=== PATIENT | female | born 1975 ===

== ENCOUNTER 2018-01-10 13:55 | Emergency (ER) | payer MEDICAID, OTHER ==
[2018-01-10 14:36] VITALS: RESP 20; O2SAT 98
--- NOTE | 2018-01-10 16:48 | ED PDOC ---
HPI: Influenza Time Seen by Provider: 01/10/18 15:46 Chief Complaint: ENT Problem History Per: Patient Additional complaint(s):: Pt. states since Wednesday night she's had cough, congestion. States last night she developed a fever (did not take temperature). Has been taking OTC meds without relief. Denies chest pain, SOB, hemoptysis, sick contacts, recent travel. Past Medical History Reviewed: Historical Data, Nursing Documentation, Vital Signs Vital Signs: Last Vital Signs Temp 97.8 F 01/10/18 14:30 Pulse 100 H 01/10/18 14:30 Resp 20 01/10/18 14:30 BP 127/80 01/10/18 14:30 Pulse Ox 98 01/10/18 14:30 - Family History Family History: States: No Known Family Hx - Immunization History Hx Tetanus Toxoid Vaccination: No Hx Influenza Vaccination: No Hx Pneumococcal Vaccination: No - Home Medications Home Medications: Ambulatory Orders Medication Instructions Recorded Oseltamivir [Tamiflu] 75 mg PO BID #9 cap 01/10/18 RX: Promethazine DM [Phenergan DM 5 - 10 ml PO Q8 PRN #120 ml 01/10/18 Syrup] - Allergies Allergies/Adverse Reactions: Allergies Allergy/AdvReac Type Severity Reaction Status Date / Time No Known Allergies Allergy Verified 01/10/18 14:30 Review of Systems ROS Statement: Except As Marked, All Systems Reviewed And Found Negative Constitutional: Positive for: Fever, Malaise ENT: Positive for: Nose Congestion Respiratory: Positive for: Cough Physical Exam - Physical Exam Appears: Positive for: Well, Non-toxic, No Acute Distress Skin: Positive for: Normal Color, Warm. Negative for: Rash Eye Exam: Positive for: EOMI, Normal appearance, PERRL ENT: Positive for: Normal ENT Inspection Cardiovascular/Chest: Positive for: Regular Rate, Rhythm Respiratory: Positive for: CNT, Normal Breath Sounds Gastrointestinal/Abdominal: Positive for: Soft. Negative for: Tenderness Neurologic/Psych: Positive for: Alert, Oriented (x3). Negative for: Aphasia, Facial Droop - ECG O2 Sat by Pulse Oximetry: 98 Disposition - Clinical Impression Clinical Impression: Influenza-like illness - Patient ED Disposition Is Patient to be Admitted: No - Disposition Referrals: [facility] [Outside] Disposition: Routine/Home Disposition Time: 16:50 Condition: STABLE Additional Instructions: BARBARA CHRISTIANSEN, thank you for letting us take care of you today. Your provider was Sonia Hernandez MD and you were treated for FEVER,HEADACHE. The emergency medical care you received today was directed at your acute symptoms. If you were prescribed any medication, please fill it and take as directed. It may take several days for your symptoms to resolve. Return to the Emergency Department if your symptoms worsen, do not improve, or if you have any other problems. Please contact your doctor or call one of the physicians/clinics you have been referred to that are listed on the Patient Visit Information form that is included in your discharge packet. Bring any paperwork you were given at discharge with you along with any medications you are taking to your follow up visit. Our treatment cannot replace ongoing medical care by a primary care provider outside of the emergency department. Thank you for allowing the [facility] team to be part of your care today. If you had an X-Ray or CT scan: A Radiologist will review the ED reading if any change in treatment is needed we will contact you. If you had a blood, urine, or wound culture: It will take several days for the results, if any change in treatment is needed we will contact you. If you had an STI test: It will take 48 hours for the results. Please call after 1 week if you have not heard back. Prescriptions: Oseltamivir [Tamiflu] 75 mg PO BID #9 cap RX: Promethazine DM [Phenergan DM Syrup] 5 - 10 ml PO Q8 PRN #120 ml PRN Reason: Cough Instructions: Viral Syndrome (DC) Forms: [employer] (Norwegian)
[2018-01-10 18:49] VITALS: BP 120/70; PULSE 70; TEMP 98
== END 2018-01-10 18:20 | disposition home or self-care (01) ==
LOC: H.ER 13:55
DX: J11.1 Influenza due to unidentified influenza virus with other respiratory manifestations (principal)

== ENCOUNTER 2018-07-16 08:36 | Emergency (ER) | payer SELFPAY ==
[2018-07-16 08:43] VITALS: BMI 27.3
[2018-07-16] MEDS ORDERED: cefTRIAXone (Rocephin) 250 mg Inj IM STA (09:39)
[2018-07-16] MEDS ORDERED: cefTRIAXone (Rocephin) 250 mg Inj ONE (09:52)
--- NOTE | 2018-07-16 11:13 | ED PDOC ---
HPI: Female Pain Time Seen by Provider: 07/16/18 09:11 Chief Complaint (Nursing): Female Genitourinary Chief Complaint (Provider): dysuria, vaginal discharge, RLQ abd pain History Per: Patient History/Exam Limitations: no limitations Additional Complaint(s): 43 y/o F with no significant PMH who presents with dysuria, RLQ pain and vaginal discharge since yesterday. Pt states that she has had urinary frequency and dy suria since yesterday with some RLQ abdominal pain. She has also had whitish vaginal discharge since yesterday as well. Denies fever, chills, night sweats, N/V, diarrhea. + hx of gonorrhea in the past. Past Medical History Reviewed: Historical Data, Nursing Documentation, Vital Signs Vital Signs: Last Vital Signs Temp 98.4 F 07/16/18 08:43 Pulse 65 07/16/18 08:43 Resp 17 07/16/18 08:43 BP 116/78 07/16/18 08:43 Pulse Ox 97 07/16/18 08:43 - Medical History PMH: Asthma - Surgical History Surgical History: Cholecystectomy - Family History Family History: States: Unknown Family Hx - Immunization History Hx Tetanus Toxoid Vaccination: No Hx Influenza Vaccination: No Hx Pneumococcal Vaccination: No - Home Medications Home Medications: Ambulatory Orders Medication Instructions Recorded Oseltamivir Cap [Tamiflu] 75 mg PO BID #9 cap 01/10/18 Promethazine DM [Phenergan DM 5 - 10 ml PO Q8 PRN #120 ml 01/10/18 Syrup] Miconazole 2% Vaginal [Monistat 7 1 applic VG DAILY #7 tube 07/16/18 Vaginal Cream] - Allergies Allergies/Adverse Reactions: Allergies Allergy/AdvReac Type Severity Reaction Status Date / Time No Known Allergies Allergy Verified 01/10/18 14:30 Review of Systems Constitutional: Negative for: Fever, Chills Gastrointestinal: Positive for: Abdominal Pain Genitourinary Female: Positive for: Dysuria, Frequency, Vaginal Discharge Physical Exam - Reviewed Nursing Documentation Reviewed: Yes Vital Signs Reviewed: Yes - Physical Exam Appears: Positive for: Well Gastrointestinal/Abdominal: Positive for: Soft, Tenderness (RLQ tenderness on palpation). Negative for: Distended, Guarding, Rebound Pelvic Exam: Positive for: External Exam Normal (exam performed in the presence of RN Alisa), Bimanual Exam Normal, No Cerv. Motion Tender, No Masses. Negative for: Speculum Exam Normal (mild amount of thick whitish/yellow discharge), Active Bleeding, Cervicitis Back: Negative for: L CVA Tenderness, R CVA Tenderness Neurological/Psych: Positive for: Awake, Alert, Oriented - ECG O2 Sat by Pulse Oximetry: 97 Medical Decision Making Medical Decision Making: URine dip Transvaginal U/S GC/Chlamydia Genital culture Azithromycin 1G PO x 1 Rocephine 250mg IM x 1 Urine dip: LE and nitrate negative. U/A and urine culture ordered. U/A: NItrate and LE negative. WBC 1K. 11:45am: episode of N/V. Pt re-evaluated. States that the Azithromycin pill left a tast in her mouth that made her nauseous. Feeling better currently before receiving anti-nausea medication. Abdominal pain has resolved. Re-examined: no abdominal tenderness in any quadrant. Negative psoas sign, negative obturator sign. Transvaginal U/S: FINDINGS: UTERUS: Measures 8.9 x 4.6 x 5.8 cm. Normal in size and appearance. Right fundal for posterior fibroid measuring 1.4 x 0.9 x 0.9 cm. ENDOMETRIUM: Measures 10 mm in diameter. Unremarkable. CERVIX: Nabothian cysts. No other abnormality. RIGHT OVARY: Measures 2.0 x 0.8 x 2.0 cm. No solid mass. Normal flow. LEFT OVARY: Measures 3.9 x 2.8 x 3.6 cm. Dominant follicle with debris measuring 2.6 x 2.4 x 2.1 cm. Normal flow. FREE FLUID: No significant free fluid noted. OTHER FINDINGS: None. IMPRESSION: Right posterior fundal fibroid measuring up to 1.4 cm. Dominant left ovarian follicle with debris measuring up to 2.6 cm. Disposition - Clinical Impression Clinical Impression: Vulvovaginal candidiasis - Patient ED Disposition Is Patient to be Admitted: No Counseled Patient/Family Regarding: Studies Performed, Diagnosis, Need For Followup, Rx Given - Disposition Referrals: [facility] [Outside] [facility] [[facility]] Disposition: Routine/Home Disposition Time: 13:20 Condition: STABLE Additional Instructions: Follow up with wine sales representative if your symptoms persist. Avoid sexual intercourse for one week after receiving antibiotics. Use Monistat for yeast infection. Return to ER if abdominal pain and nausea return or worsen. Prescriptions: Miconazole 2% Vaginal [Monistat 7 Vaginal Cream] 1 applic VG DAILY #7 tube Instructions: Vaginal Yeast Infection (DC) Forms: [employer] [facility] (Romansh) Print Language: KISWA[place]ILI
[2018-07-16 12:16] LABS: SQUAMOUS EPITHIAL 2 /hpf (0-5); URINE BILIRUBIN NEGATIVE (NEGATIVE); URINE BLOOD SMALL (NEGATIVE); URINE CLARITY SLIGHTY-CLOUDY (Clear); URINE COLOR YELLOW (YELLOW); URINE GLUCOSE (UA) NEG (NEGATIVE); URINE LEUKOCYTE ESTERASE NEG Leu/uL (Negative); URINE PROTEIN NEGATIVE (NEGATIVE); URINE UROBILINOGEN 0.2-1.0 mg/dL (0.2-1.0)
--- NOTE | 2018-07-16 13:03 | US ---
Date of service: 07/16/2018 HISTORY: RLQ and pelvic tenderness COMPARISON: Pelvic ultrasound dated 02/06/2009. TECHNIQUE: Grayscale, color Doppler and spectral evaluation the pelvis performed transvaginally. FINDINGS: UTERUS: Measures 8.9 x 4.6 x 5.8 cm. Normal in size and appearance. Right fundal for posterior fibroid measuring 1.4 x 0.9 x 0.9 cm. ENDOMETRIUM: Measures 10 mm in diameter. Unremarkable. CERVIX: Nabothian cysts. No other abnormality. RIGHT OVARY: Measures 2.0 x 0.8 x 2.0 cm. No solid mass. Normal flow. LEFT OVARY: Measures 3.9 x 2.8 x 3.6 cm. Dominant follicle with debris measuring 2.6 x 2.4 x 2.1 cm. Normal flow. FREE FLUID: No significant free fluid noted. OTHER FINDINGS: None. IMPRESSION: Right posterior fundal fibroid measuring up to 1.4 cm. Dominant left ovarian follicle with debris measuring up to 2.6 cm.
[2018-07-16 14:20] VITALS: BP 110/70; PULSE 72; RESP 20; TEMP 98
[2018-07-16 18:29] VITALS: O2SAT 97
== END 2018-07-16 14:20 | disposition home or self-care (01) ==
LOC: H.ER 08:36
DX: B37.3 Candidiasis of vulva and vagina (principal); J45.909 Unspecified asthma, uncomplicated
CPT/HCPCS: 76830; 81003; 81025; 87070; 87086; 87491; 87591; 96372; 99283; J0696